=== PATIENT | male | born 1995 | race Caucasian/White ===

== ENCOUNTER 2018-09-04 15:35 | Emergency (ER) | payer SELFPAY ==
[2018-09-04 15:36] VITALS: BP 134/76; PULSE 97; RESP 18; TEMP 35.9; O2SAT 97; BMI 30.3
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
== END 2018-09-04 16:34 | disposition home or self-care (01) ==
LOC: ED 16:31
PROVIDERS: Emergency Provider Emergency Medicine
DX: S50.11XA Contusion of right forearm, initial encounter (principal); V86.56XA Driver of dirt bike or motor/cross bike injured in nontraffic accident, initial encounter; Y93.I9 Activity, other involving external motion; Y92.89 Other specified places as the place of occurrence of the external cause; Y99.8 Other external cause status; Z87.891 Personal history of nicotine dependence
CPT/HCPCS: 73090; 99282

== ENCOUNTER 2020-02-22 15:08 | Emergency (ER) | payer MEDICAID, SELFPAY ==
[2020-02-22 15:08] VITALS: BP 144/68; PULSE 75; RESP 16; TEMP 36.4; O2SAT 98; BMI 25.7
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
[2020-02-22] MEDS: HYDROcodone Bitartrate/Apap 5/325 Tablet PO (16:28)
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
--- NOTE | 2020-02-22 16:32 | DCINST.ED_ITS ---
ED Disposition - Plan for ED Patient: Instructions: ED Contusion, Upper Extremity Prescriptions: Hydrocodone Bitart/Apap 5-325 [[place] 5MG-325MG] 1 tab PO Q4H PRN PRN 2 Days #10 tab PRN Reason: Pain Prescription Printed Referrals: Care Physician,No Primary [Primary Care Provider] - Oli Evans MD [STAFF PHYSICIAN] - 5-7 Days
[2020-02-22 16:39] VITALS: RESP 18
== END 2020-02-22 16:39 | disposition home or self-care (01) ==
PROVIDERS: Emergency Provider Emergency Medicine
DX: S50.12XA Contusion of left forearm, initial encounter (principal); Z87.891 Personal history of nicotine dependence; W22.09XA Striking against other stationary object, initial encounter; Y93.72 Activity, wrestling; Y92.008 Other place in unspecified non-institutional (private) residence as the place of occurrence of the external cause; Y99.8 Other external cause status
CPT/HCPCS: 73090; 73110; 99283

== ENCOUNTER 2020-03-23 17:55 | Emergency (ER) | payer MEDICAID, SELFPAY ==
[2020-03-23 17:57] VITALS: BP 138/78; PULSE 118; RESP 20; TEMP 37.2; O2SAT 97; BMI 26.7
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
[2020-03-23] MEDS: Diphth,Pertuss(Acell),Tet Vac 0.5 ML Vial IM (18:39)
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
[2020-03-23 19:20] VITALS: RESP 18
== END 2020-03-23 19:20 | disposition home or self-care (01) ==
LOC: ED 18:48
PROVIDERS: Emergency Provider Emergency Medicine
DX: S00.11XA Contusion of right eyelid and periocular area, initial encounter (principal); S50.12XA Contusion of left forearm, initial encounter; Z87.891 Personal history of nicotine dependence; Y04.2XXA Assault by strike against or bumped into by another person, initial encounter; Y93.89 Activity, other specified; Y92.89 Other specified places as the place of occurrence of the external cause; Y99.8 Other external cause status
CPT/HCPCS: 70450; 70486; 72125; 73090; 90471; 90715; 99282

== ENCOUNTER 2020-04-26 11:06 | Emergency (ER) | payer MEDICAID, SELFPAY ==
[2020-04-26 11:08] VITALS: BP 121/92; PULSE 95; RESP 20; TEMP 36.4; O2SAT 100; BMI 26.9
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
[2020-04-26] MEDS: Ibuprofen 600 MG Tablet PO (12:09)
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
[2020-04-26 14:17] VITALS: BP 118/77; PULSE 79; RESP 16; O2SAT 97
--- NOTE | 2020-04-26 14:17 | ED.RN ---
DISCHARGE INSTRUCTIONS GIVEN TO AND REVIEWED WITH PATIENT, PATIENT DENIES QUESTIONS OR CONCERNS AND VOICES UNDERSTANDING OF DISCHARGE INSTRUCTIONS. PT AMBULATES OUT OF ROOM WITHOUT DIFFICULTY.
== END 2020-04-26 14:17 | disposition home or self-care (01) ==
PROVIDERS: Emergency Provider Emergency Medicine
DX: S20.219A Contusion of unspecified front wall of thorax, initial encounter (principal); S60.222A Contusion of left hand, initial encounter; Z72.0 Tobacco use; V57.6XXA Passenger in pick-up truck or van injured in collision with fixed or stationary object in traffic accident, initial encounter; Y93.I9 Activity, other involving external motion; Y92.410 Unspecified street and highway as the place of occurrence of the external cause; Y99.8 Other external cause status
CPT/HCPCS: 70450; 71046; 73130; 99283; A4216

== ENCOUNTER 2020-08-08 10:14 | Emergency (ER) | payer MEDICAID, SELFPAY ==
[2020-08-08 10:15] VITALS: BP 139/80; PULSE 95; RESP 18; TEMP 36.6; O2SAT 98; BMI 27.5
[2020-08-08 10:39] VITALS: BP 139/80; PULSE 95; RESP 18; TEMP 36.6; O2SAT 98
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
[2020-08-08 11:17] VITALS: BP 136/81; PULSE 99; RESP 16; TEMP 36.6; O2SAT 98
[2020-08-08 11:27] VITALS: RESP 14
[2020-08-08] MEDS: Lidocaine 1% (20 ml mdv) 20 ML Vial 6 ML INFILT (11:28)
[2020-08-08 12:35] VITALS: BP 130/91; PULSE 74; RESP 15; O2SAT 100
== END 2020-08-08 12:40 | disposition home or self-care (01) ==
PROVIDERS: Emergency Provider Emergency Medicine
DX: S01.01XA Laceration without foreign body of scalp, initial encounter (principal); S10.93XA Contusion of unspecified part of neck, initial encounter; S50.12XA Contusion of left forearm, initial encounter; F17.210 Nicotine dependence, cigarettes, uncomplicated; Y00.XXXA Assault by blunt object, initial encounter; Y93.89 Activity, other specified; Y92.89 Other specified places as the place of occurrence of the external cause; Y99.8 Other external cause status
CPT/HCPCS: 12002; 70450; 72040; 73090; 99283

== ENCOUNTER 2023-09-20 18:02 | Emergency (ER) | payer SELFPAY ==
[2023-09-20 18:02] VITALS: BP 131/94; PULSE 92; RESP 16; TEMP 36.9; O2SAT 98; BMI 28.0
--- NOTE | 2023-09-20 18:56 | US_ITS ---
STUDY: VENOUS DOPPLER ULTRASOUND - RIGHT LOWER EXTREMITY REASON FOR EXAM: Male, 27 years old. RT LEG PAIN TECHNIQUE: Ultrasound evaluation of the deep vein system to include vuong-scale imaging and compression was performed. Vuong-scale imaging and Doppler sonographic evaluation, including duplex spectral analysis and qualitative color flow sonography, was performed. COMPARISON: None. FINDINGS: Common Femoral Vein: Normal compression, spontaneity and augmentation. Normal color Doppler. Common Femoral Vein/Greater Saphenous Junction: Normal compression, spontaneity and augmentation. Normal color Doppler. Deep Femoral Vein: Normal compression, spontaneity and augmentation. Normal color Doppler. Femoral Proximal: Normal compression, spontaneity and augmentation. Normal color Doppler. Femoral Middle: Normal compression, spontaneity and augmentation. Normal color Doppler. Femoral Distal: Normal compression, spontaneity and augmentation. Normal color Doppler. Popliteal Vein: Normal compression, spontaneity and augmentation. Normal color Doppler. Posterior Tibial Vein: Normal compression, spontaneity and augmentation. Normal color Doppler. Peroneal Vein: Normal compression, spontaneity and augmentation. Normal color Doppler. There is no demonstrated deep venous thrombosis. US/Venous Duplex Imag/Limited/Uni IMPRESSION: Normal venous Doppler ultrasound of the lower extremity. Electronically Signed: Raul Jauregui MD at 21:14 EDT ,
--- NOTE | 2023-09-20 19:20 | RAD_ITS ---
STUDY: X-RAY - RIGHT TIBIA AND FIBULA REASON FOR EXAM: Male, 27 years old. Pain TECHNIQUE: Frontal and lateral view(s) of the tibia and fibula were obtained. COMPARISON: None. FINDINGS: Normal visualized tibia. Normal visualized fibula. There is no demonstrated acute fracture. The soft tissue structures are unremarkable. RAD/Tibia & Fibula 2 Views IMPRESSION: Normal x-ray examination of the tibia and fibula. Electronically Signed: Raul Jauregui MD at 21:12 EDT ,
[2023-09-20] MEDS: oxyCODONE 5 MG Tablet PO (20:07)
--- NOTE | 2023-09-20 20:52 | EDS_ITS ---
HPI History of Present Illness Chief Complaint: Lower Extremity Injury Detail of Chief Complaint: Right leg pain Informant: patient Narrative Narrative: Patient present secondary right leg pain that started earlier today. He states around noon he was at work when he noted pain along the medial aspect of his ankle and in the lower portion of his lower leg. He denies any known injury. He does not do a lot of walking at work. He states he will get sharp shooting pain but also [id number] sensation. He tried Aleve this afternoon without improvement. [facility] Medical History Forearm fracture Forearm fracture Migraine Home Medications ?Medication ?Instructions ?Recorded ?Last Taken ?Type NK 09/20/23 Unknown History Allergy/AdvReac Type Severity Reaction Status Date / Time venom-honey bee (bee venom Allergy Severe Anaphylaxis Verified 09/20/23 18:06 (honey bee)) morphine Allergy Swelling Verified 09/20/23 18:06 tramadol Allergy Swelling Verified 09/20/23 18:06 Family History no significant family his Social History Smoking Status: Former smoker ROS ROS ED Constitutional Constitutional ED: Denies chills or fever(s) ENT ENT ED: Denies rhinorrhea or sore throat Cardiovascular Cardiovascular: Denies chest pain Respiratory/Chest Respiratory/Chest: Denies cough or dyspnea Gastrointestinal Gastrointestinal: Denies abdominal pain, nausea or vomiting Musculoskeletal Musculoskeletal: Reports extremity pain; Denies back pain Integumentary Denies Abrasions or rash Neurologic Neurologic: Denies headache(s) or weakness Psychiatric Psychiatric: Denies anxiety or depression Allergic/Immunologic Allergic/Immunologic ED: Denies lip swelling or urticaria EXAM Physical Exam Const Vital Signs: 09/20/23 18:02 09/20/23 21:38 Temperature 98.4 F 97 F L Temperature Source Temporal Pulse Rate 92 58 L Respiratory Rate 16 16 Blood Pressure 131/94 H 114/74 Blood Pressure Mean 106 87 Pulse Ox 98 98 Oxygen Delivery Method Room Air Positive well nourished and well developed General Appearance ED: well developed HEENT Reports moist mucous membranes Neck full ROM Chest Wall inspection of chest normal and palpation of chest normal Resp normal respiratory effort and clear to auscultation bilaterally Cardio regular rate and regular rhythm GI non-tender Extremity Extremity Narrative: Mild tenderness all patient along the medial aspect of the distal third of the right lower leg. No erythema. No open wounds. There is a dry, scabbed rash along the medial calcaneus the patient states has been there for quite some time. This particular area is not painful. He has strong distal pulses with full range of motion. Neuro oriented x3 and moves all extremities MDM MDM MDM Narrative Medical decision making narrative: Patient given a single dose of oxycodone while awaiting test results. Venous ultrasound of the right lower extremity obtained to evaluate for potential DVT. Right tib-fib x-rays obtained to evaluate for any bony injury. Radiography Diagnostic Testing: Clinical Impression(s) from Imaging Studies Venous Duplex 09/20/23 18:56 IMPRESSION: Normal venous Doppler ultrasound of the lower extremity. Electronically Signed: Raul Jauregui MD at 21:14 EDT , Tibia/Fibula X-Ray 09/20/23 19:20 IMPRESSION: Normal x-ray examination of the tibia and fibula. Electronically Signed: Raul Jauregui MD at 21:12 EDT , Treatment and Re-Evaluation Narrative: Right tib-fib x-ray per my interpretation reveals no obvious acute injury. He does have a horizontal area of increased calcification superior to the area of his pain. This is likely from an old injury. Radiology interpretation is reviewed and feels there are no acute findings. Venous ultrasound of the right lower extremity reveals no evidence of DVT. Test results discussed with the patient. He does have reassurance with negative workup at this time. Nasir wrap will be applied to the area. Patient to take Tylenol or ibuprofen as needed for pain. Return instructions given. Discharge Plan Triage Chief Complaint: Lower Extremity Injury ED Provider: Gayla Harry Dx/Rx/DC Orders Clinical Impression: Acute leg pain Instructions: ED Pain, Acute, Uncertain Cause Prescriptions: No Action NK Primary Care Provider: Care Physician,No Primary Referrals: Borruso,Presley, DO [Med Staff - Active Staff] - 1 Week if not improving Care Physician,No Primary [Primary Care Provider] - Print Language: Citizen Of [place] Disposition Disposition: Home, Self Care Discharge Date/Time: 09/20/23 21:41
[2023-09-20 21:38] VITALS: BP 114/74; PULSE 58; RESP 16; TEMP 36.1; O2SAT 98
== END 2023-09-20 21:41 | disposition home or self-care (01) ==
PROVIDERS: Emergency Provider Emergency Medicine; Visit Provider Emergency Medicine
DX: M79.604 Pain in right leg (principal); Z87.891 Personal history of nicotine dependence
CPT/HCPCS: 73590; 93971; 99282